=== PATIENT | male | born 1975 | race Caucasian/White ===

== ENCOUNTER 2022-03-29 18:56 | Emergency (ER) | payer BC ==
[2022-03-29] MEDS ORDERED: Lidocaine 1% 10 ML MDV INJECT ONE (19:04)
== END 2022-03-29 19:40 | disposition home or self-care (01) ==
LOC: VM.ED 18:56
DX: S61.210A Laceration without foreign body of right index finger without damage to nail, initial encounter (principal); W23.0XXA Caught, crushed, jammed, or pinched between moving objects, initial encounter
CPT/HCPCS: 12002; 99282; 99283; J3490